=== PATIENT | male | born 1970 | race Caucasian/White ===

== ENCOUNTER 2023-11-02 14:08 | Outpatient (CLI) | payer OTHER, SELFPAY | END 2023-11-02 14:09 | disposition home or self-care (01) | LOC: LKVREF 14:10 | PROVIDERS: Visit Provider Physician Assistant | DX: R10.31 Right lower quadrant pain (principal) | CPT/HCPCS: 83690; 87086 ==

== ENCOUNTER 2023-12-05 08:05 | Outpatient (CLI) | payer OTHER, SELFPAY | END 2023-12-05 08:06 | disposition home or self-care (01) | PROVIDERS: Visit Provider Family Medicine | DX: E78.2 Mixed hyperlipidemia (principal); Z12.5 Encounter for screening for malignant neoplasm of prostate; Z13.29 Encounter for screening for other suspected endocrine disorder; Z13.9 Encounter for screening, unspecified | CPT/HCPCS: 80053; 80061; 84443; 86703; 86803; G0103 ==

== ENCOUNTER 2023-12-22 10:58 | Outpatient (CLI) | payer OTHER, SELFPAY ==
--- NOTE | 2023-12-22 11:34 | W.ANESCHARGE ---
Anesthesia Charges Start Date/Time Anesthesia Start Date: 12/22/23 Anesthesia Start Time: 11:30 Stop Date/Time Anesthesia Stop Date: 12/22/23 Anesthesia Stop Time: 12:02
--- NOTE | 2023-12-22 12:04 | W.ANESCHARGE ---
Anesthesia Charges Start Date/Time Anesthesia Start Date: 12/22/23 Anesthesia Start Time: 11:30 Stop Date/Time Anesthesia Stop Date: 12/22/23 Anesthesia Stop Time: 12:02
== END 2023-12-22 10:59 | disposition home or self-care (01) ==
LOC: OP CLINIC 10:59
PROVIDERS: PCP Family Medicine; Visit Provider Internal Medicine
DX: Z12.11 Encounter for screening for malignant neoplasm of colon (principal); K63.5 Polyp of colon
CPT/HCPCS: 00811; 45380; 45385; 88305; J2704

== ENCOUNTER 2025-01-02 08:36 | Outpatient (CLI) | payer BC, SELFPAY | END 2025-01-02 08:37 | disposition home or self-care (01) | PROVIDERS: PCP Family Medicine; Visit Provider Family Medicine | DX: R53.83 Other fatigue (principal); G62.9 Polyneuropathy, unspecified; G57.10 Meralgia paresthetica, unspecified lower limb; E66.01 Morbid (severe) obesity due to excess calories; R68.82 Decreased libido; F41.8 Other specified anxiety disorders; Z12.5 Encounter for screening for malignant neoplasm of prostate | CPT/HCPCS: 80053; 80061; 84270; 84402; 84403; G0103 ==